=== PATIENT | female | born 1945 | race Caucasian/White ===

== ENCOUNTER 2018-04-12 10:31 | Outpatient (CLI) | payer MEDICARE ==
--- NOTE | 2018-04-12 13:45 | HP ---
DATE OF SERVICE: 04/12/2018. HISTORY OF PRESENT ILLNESS: Ms. Korina Contreras is a very pleasant 73-year-old who presents to the [facility] for evaluation of multiple wounds. Specifically, the patient has an ulceration of the ante rior abdominal wall over the right lower quadrant. The patient also has an ulceration of the right a nterior thigh in addition to an ulceration over the right ischium. 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 Rosenthal at [facility]. 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 The patisukhdev reyna is presently residing at [facility]. The patient was referred to the Wound Center by Dr. Sintia gunn. PAST MEDICAL HISTORY: 1. Chronic back pain. 2. Diabetes mellitus. 3. Hypertension. 4. Osteoporosis/osteopenia. 5. Congestive heart failure. 6. End-stage renal disease. 7. Glaucoma. 8. Osteoarthritis. 9. Gastroesophageal reflux disease. PAST SURGICAL HISTORY: 1. Hysterectomy. 2. Cholecystectomy. 3. Bilateral carpal tunnel release. 4. ORIF left hip/ORIF right proximal humerus. 5. Hardware removal in 12/2010. 6. Eye surgery. MEDICATIONS: 1. DuoNeb. 2. Gemfibrozil. 3. Hydralazine. 4. Hydroxyzine. 5. Lantus. 6. Levothyroxine. 7. Metoclopramide. 8. Sensipar. 9. Sevelamer. 10. Uloric. 11. Vytorin. ALLERGIES: CODEINE, SULFA, EPINEPHRINE. SOCIAL HISTORY: Social history is negative for tobacco or ETOH use. FAMILY HISTORY: Family history is significant for diabetes mellitus. The patient states that her mo ther and two siblings were diagnosed with diabetes mellitus. Family history is also significant for coronary artery disease. The patient states that her mother and father were both diagnosed with marquise nary artery disease. PHYSICAL EXAMINATION: VITAL SIGNS: Temperature 97.5, pulse 75, respirations 18, blood pressure 194/83. Accu-Chek 123. GENERAL: A 73-year-old female sitting on wheelchair in examination room in no acute distress. HEENT: Normocephalic, atraumatic. NECK: No nuchal rigidity. CHEST: Clear to auscultation. CARDIOVASCULAR: Regular rate and rhythm. ABDOMEN: Soft. EXTREMITIES: No clubbing or cyanosis. SKIN: Ulcerations of the anterior abdominal wall over the right lower quadrant, over the right thigh and over the right ischium are present. Each ulceration contains granulation tissue within the woun d margins. No purulent drainage is associated with any of the wounds. No erythema of the skin surro unding any of the wounds is present. No maceration of the skin of the periwound of any of the wounds is noted. ASSESSMENT AND PLAN: 1. Multiple ulcerations as described above. The patient states that biopsy of the wound over the [facility] lower quadrant has been obtained and returned calciphylaxis. She states that she is receiving tr eatment for calciphylaxis at dialysis as per Dr. Rosenthal. Dressing changes of Hydrofera Blue and Mepilex border for all wounds are to be performed at [facility]. I will see Ms. Contreras again in two weeks. If the dimensions of each wound have failed to change significantly, consideration will be gi ro to a trial of a different dressing. The patient understands and is in agreement with the [facility] treatment plan. Ms. Contreras understands and is in agreement with the preceding treatment plan. 2. Chronic back pain. 3. Diabetes mellitus. The patient's Accu-Chek in clinic today is 123. The patient has been told th at for optimal wound healing, her blood glucoses should remain below 150. 4. Hypertension. 5. Osteoporosis/osteopenia. 6. Congestive heart failure. 7. End-stage renal disease. 8. Glaucoma. 9. Osteoarthritis. 10. Gastroesophageal reflux disease.
[2018-04-12] MEDS ORDERED: Sodium Chloride 0.9% 15 ML NEB ONE (21:22)
== END 2018-04-12 10:32 | disposition home or self-care (01) ==
LOC: WCC 10:31
PROVIDERS: ATTEND Family Medicine
DX: E11.622 Type 2 diabetes mellitus with other skin ulcer (principal); L98.499 Non-pressure chronic ulcer of skin of other sites with unspecified severity; L97.119 Non-pressure chronic ulcer of right thigh with unspecified severity; M54.5 Low back pain; G89.29 Other chronic pain; I13.2 Hypertensive heart and chronic kidney disease with heart failure and with stage 5 chronic kidney disease, or end stage renal disease; I50.9 Heart failure, unspecified; N18.6 End stage renal disease; H40.9 Unspecified glaucoma; M19.90 Unspecified osteoarthritis, unspecified site; K21.9 Gastro-esophageal reflux disease without esophagitis
CPT/HCPCS: 97139; 97602; G0463; 99203; A4218

== ENCOUNTER 2018-04-26 10:08 | Outpatient (CLI) | payer MEDICARE ==
[~2018-04-26 10:08] MED LIST: Lidocaine 2% Jelly 5 ML TUBE ONE; Sodium Chloride 0.9% 15 ML NEB ONE
--- NOTE | 2018-04-26 12:28 | PRG ---
DATE OF SERVICE: 04/26/2018 HISTORY: Ms. Korina Contreras is a very pleasant 73-year-old, accompanied by her son, who presents to [facility] for evaluation of multiple wounds. Specifically, the patient has an ulceration of th e right anterior abdominal wall over the right lower quadrant. The patient also has an ulceration of the right anterior thigh in addition to an ulceration over the right ischium. The patient previousl y stated that the ulcerations were secondary to calciphylaxis, for which the patient is receiving albin atment by Dr. Rosenthal at dialysis. The patient reported that her diagnosis of calciphylaxis had been con firmed with biopsy. The patient is now receiving assistance with dressing changes from Home Health. The patient was recently discharged from [facility]. Ms. Contreras was referred to the Wound Ce nter by Dr. Delano Jain. PHYSICAL EXAMINATION: VITAL SIGNS: Temperature 97.7, pulse 81, respirations 18, blood pressure 193/80. Accu-Cheks 116. SKIN: Ulcerations of the anterior abdominal wall, over the right lower quadrant, over the right thig h, and over the right ischium, are still present. Each ulceration contains granulation tissue within the wound margins. No purulent drainage is associated with any of the wounds. No erythema of the s kin surrounding any of the wounds is present. No maceration of the skin of the periwound of any of [facility] wounds is noted. ASSESSMENT AND PLAN: 1. Multiple ulcerations as described above. The patient previously stated that biopsy of the wound, over the right lower quadrant, had been obtained and returned calciphylaxis. The patient also previ ously stated that she is receiving treatment for calciphylaxis at dialysis as per Dr. Rosenthal. Dressings of Hydrofera Blue and Mepilex border will be discontinued. Dressing changes of Medihoney will be in itiated today. These dressing changes are to be performed on a daily basis after cleansing and irrig ation with the assistance of Home Health. I will see Ms. Contreras again in 2 weeks. 2. Chronic back pain. 3. Diabetes mellitus. The patient's Accu-Chek in clinic today is 116. The patient has been reminde d that for optimal wound healing, her blood glucoses should remain below 150. 4. Hypertension. 5. Osteoporosis/osteopenia. 6. Congestive heart failure. 7. End-stage renal disease. 8. Glaucoma. 9. Osteoarthritis. 10. Gastroesophageal reflux disease.
== END 2018-04-26 10:09 | disposition home or self-care (01) ==
LOC: WCC 10:08
PROVIDERS: ATTEND Family Medicine
DX: E11.622 Type 2 diabetes mellitus with other skin ulcer (principal); L97.119 Non-pressure chronic ulcer of right thigh with unspecified severity; L98.499 Non-pressure chronic ulcer of skin of other sites with unspecified severity; E11.22 Type 2 diabetes mellitus with diabetic chronic kidney disease; I12.0 Hypertensive chronic kidney disease with stage 5 chronic kidney disease or end stage renal disease; N18.6 End stage renal disease; H40.9 Unspecified glaucoma; K21.9 Gastro-esophageal reflux disease without esophagitis; E83.59 Other disorders of calcium metabolism
CPT/HCPCS: 97602; A4218

== ENCOUNTER 2018-05-10 10:45 | Outpatient (CLI) | payer MEDICARE ==
--- NOTE | 2018-05-10 11:51 | PRG ---
DATE OF SERVICE: 05/10/2018 HISTORY: Ms. Korina Contreras is a very pleasant 73-year-old accompanied by her son who presents to the Wound Center for evaluation of multiple wounds. Specifically, the patient has an ulceration of t he right anterior abdominal wall over the right lower quadrant. The patient also has an ulceration o f the right anterior thigh in addition to an ulceration over the right ischium. The patient previous ly stated that the ulcerations were secondary to calciphylaxis for which the patient is receiving albin atment by Dr. Rosenthal at dialysis. The patient reported that her diagnosis of calciphylaxis had been con firmed biopsy. Currently, the patient is receiving assistance with dressing changes from home health . The patient's son states that these dressing changes are being performed on a daily basis after cl eansing and irrigation. Ms. Contreras was recently discharged from [facility]. The patient was referred to the Wound Center by Dr. Delano Jain. PHYSICAL EXAMINATION: VITAL SIGNS: Temperature 98.0, pulse 72, respirations 18, blood pressure 192/76, Accu-Chek 162. SKIN: An ulceration over the anterior abdominal wall over the right lower quadrant is present. The dimensions of the wound are approximately 1.4 x 0.3 cm. An ulceration over the right thigh is presen t which measures approximately 1.0 x 0.3 cm. An ulceration over the right ischium is present which m easures approximately 3.3 x 1.5 cm. A new ulceration over the left buttock is present which measures approximately 1.2 x 0.8 cm. Each ulceration contains granulation tissue within the wound margins. No purulent drainage is associated with any of the wounds. No erythema of the skin surrounding any o f the wounds is present. No maceration of the skin of the periwound of any of the wounds is noted. The ulcerations of the abdomen, right thigh and right ischium have all significantly improved in thei r appearance since the patient's last visit. ASSESSMENT AND PLAN: 1. Multiple ulcerations as described above. The patient previously stated that biopsy of the wound over the right lower quadrant had been obtained and returned with findings of calciphylaxis. The pat ient also previously stated that she is receiving treatment for calciphylaxis at dialysis as per Dr. Rosenthal. Dressing changes of Medihoney will be continued on a daily basis after cleansing and irrigation with the assistance of Home Health. I will see Ms. Contreras again in two weeks. As stated above, th e ulcerations noted at the time of the patient's last visit have markedly improved in their appearanc e since the patient's last visit. The new ulceration over the left buttock appears to be a pressure ulceration and the patient has been instructed as to the importance of offloading with position august es at least every 2 hours. 2. Chronic back pain. 3. Diabetes mellitus. The patient's Accu-Chek in clinic today is 162. The patient has been reminde d that for optimal wound healing, her blood glucoses should remain below 150. 4. Hypertension. 5. Osteoporosis/osteopenia. 6. Congestive heart failure. 7. End-stage renal disease. 8. Glaucoma. 9. Osteoarthritis. 10. Gastroesophageal reflux disease.
[2018-05-10] MEDS ORDERED: Sodium Chloride 0.9% 15 ML NEB ONE (19:02)
[2018-05-10] MEDS ORDERED: Lidocaine 2% Jelly 5 ML TUBE ONE (19:02)
== END 2018-05-10 10:46 | disposition home or self-care (01) ==
LOC: WCC 10:45
PROVIDERS: ATTEND Family Medicine
DX: E11.622 Type 2 diabetes mellitus with other skin ulcer (principal); L98.499 Non-pressure chronic ulcer of skin of other sites with unspecified severity; G89.29 Other chronic pain; M54.9 Dorsalgia, unspecified; E11.22 Type 2 diabetes mellitus with diabetic chronic kidney disease; I13.2 Hypertensive heart and chronic kidney disease with heart failure and with stage 5 chronic kidney disease, or end stage renal disease; N18.6 End stage renal disease; I50.9 Heart failure, unspecified; M81.0 Age-related osteoporosis without current pathological fracture; K21.9 Gastro-esophageal reflux disease without esophagitis; E11.39 Type 2 diabetes mellitus with other diabetic ophthalmic complication; M19.90 Unspecified osteoarthritis, unspecified site; H40.9 Unspecified glaucoma
CPT/HCPCS: A4218

== ENCOUNTER 2018-05-24 14:58 | Outpatient (CLI) | payer MEDICARE ==
[~2018-05-24 14:58] MED LIST changes: -Lidocaine 2% Jelly 5 ML TUBE ONE
--- NOTE | 2018-05-24 16:10 | PRG ---
DATE OF SERVICE: 05/24/2018 HISTORY: Ms. Korina Contreras is a very pleasant 73-year-old accompanied by her son who presents to the Wound Center for evaluation of multiple wounds. Specifically, the patient has an ulceration of t he right anterior abdominal wall over the right lower quadrant. The patient also has an ulceration o f the right anterior thigh in addition to an ulceration over the right ischium. The patient previous ly stated that the ulcerations were secondary to calciphylaxis for which the patient is receiving albin atment by Dr. Rosenthal at dialysis. The patient reported that her diagnosis of calciphylaxis had been con firmed by biopsy. Currently, the patient is receiving assistance with dressing changes by [facility]. The patient's son again states that these dressing changes are being performed on a daily basis a fter cleansing and irrigation. The patient was recently discharged from [facility]. Ms. Odell rodriguez was referred to the Wound Center by Dr. Delano Jain. PHYSICAL EXAMINATION: VITAL SIGNS: Temperature 97.9, respirations 17. Accu-Chek 143. SKIN: An ulceration over the anterior abdominal wall over the right lower quadrant has almost healed completely. The ulceration over the right thigh has completely healed. An ulceration over the righ t ischium is present which measures approximately 2.0 x 2.0 cm. An ulceration over the left buttock is present which measures approximately 0.4 x 0.4 cm. The patient reports presence of an ulceration of the right anterior lower leg which appears to be healing without complications or any signs of inf ection. No purulent drainage is associated with any of the wounds. No erythema of the skin surround ing any of the wounds is present. No maceration of the skin of the periwound of any of the wounds is noted. ASSESSMENT AND PLAN: 1. Multiple ulcerations as described above. The patient previously stated that biopsy of the wound over the right lower quadrant had been obtained and returned with findings of calciphylaxis. The pat ient also previously stated that she is receiving treatment for calciphylaxis at dialysis as per Dr. Rosenthal. Dressing changes of Medihoney will be continued on a daily basis after cleansing and irrigation for all wounds with the assistance of Home Health. I will see Ms. Contreras again in two weeks. The remaining ulcerations again have significantly improved in their appearance since the patient's last visit. Again, the patient has been told that the ulceration over the left buttock appears to be a pr essure ulceration and the patient has been instructed as to the importance of offloading with positio n changes at least every 2 hours. 2. Chronic back pain. 3. Diabetes mellitus. The patient's Accu-Chek in clinic today is 143. The patient has been reminde d that for optimal wound healing, her blood glucoses should remain below 150. 4. Hypertension. 5. Osteoporosis/osteopenia. 6. Congestive heart failure. 7. End-stage renal disease. 8. Glaucoma. 9. Osteoarthritis. 10. Gastroesophageal reflux disease.
== END 2018-05-24 14:59 | disposition home or self-care (01) ==
LOC: WCC 14:58
PROVIDERS: ATTEND Family Medicine
DX: L89.329 Pressure ulcer of left buttock, unspecified stage (principal); K25.9 Gastric ulcer, unspecified as acute or chronic, without hemorrhage or perforation; M54.5 Low back pain; E11.22 Type 2 diabetes mellitus with diabetic chronic kidney disease; I13.2 Hypertensive heart and chronic kidney disease with heart failure and with stage 5 chronic kidney disease, or end stage renal disease; I50.9 Heart failure, unspecified; M81.0 Age-related osteoporosis without current pathological fracture; M85.80 Other specified disorders of bone density and structure, unspecified site; H40.9 Unspecified glaucoma; M19.90 Unspecified osteoarthritis, unspecified site; K21.9 Gastro-esophageal reflux disease without esophagitis; N18.6 End stage renal disease
CPT/HCPCS: 97602; A4218

== ENCOUNTER → 2018-06-07 | Outpatient (CLI) | payer MEDICARE ==
[~2018-06-07] MED LIST changes: +Lidocaine 2% Jelly 5 ML TUBE ONE
--- NOTE | 2018-06-07 11:40 | PRG ---
DATE OF SERVICE: 06/07/2018 HISTORY: Ms. Korina Contreras is a very pleasant 73-year-old accompanied by her son who presents to the Wound Center for evaluation of multiple wounds. Specifically, the patient has an ulceration of t he right anterior abdominal wall over the right lower quadrant. The patient also has an ulceration o f the right anterior thigh in addition to an ulceration over the right ischium. The patient previous ly stated that the ulcerations were secondary to calciphylaxis for which the patient is receiving albin atment by Dr. Rosenthal at dialysis. The patient reported that her diagnosis of calciphylaxis had been con firmed by biopsy. Presently, the patient is receiving assistance with dressing changes by [facility]. The patient's son again states that these dressing changes are being performed on a daily basis a fter cleansing and irrigation. PHYSICAL EXAMINATION: VITAL SIGNS: Temperature 97.6, pulse 73, respirations 18, blood pressure 196/76, Accu-Chek 128. SKIN: The ulceration over the anterior abdominal wall over the right lower quadrant has almost heale d completely. The ulceration over the right thigh has healed completely and remains healed. An ulce ration over the right ischium is present which measures approximately 1.2 x 1.1 cm. The ulceration o vincent the left buttock noted at the time of the patient's last visit has healed completely. An ulcerat ion over the right anterior lower leg is present which again appears to be healing without complicati ons or any signs of infection. No purulent drainage is associated with any of the wounds. No erythe ma of the skin surrounding any of the wounds is present. No maceration of the skin of the periwound of any of the wounds is noted. ASSESSMENT AND PLAN: 1. Multiple ulcerations as described above. The patient previously stated that the biopsy of the wo und over the right lower quadrant had been obtained and returned with findings of calciphylaxis. The patient also previously stated that she is receiving treatment for calciphylaxis at dialysis as per Dr. Rosenthal. Dressing changes of [facility] for all remaining wounds will be continued on a daily basis a fter cleansing and irrigation with the assistance of Home Health. I will see Ms. Contreras again in tw o weeks. 2. Chronic back pain. 3. Diabetes mellitus. The patient's Accu-Chek in clinic today is 128. The patient has been reminde d that for optimal wound healing, her blood glucoses should remain below 150. 4. Hypertension. 5. Osteoporosis/osteopenia. 6. Congestive heart failure. 7. End-stage renal disease. 8. Glaucoma. 9. Osteoarthritis. 10. Gastroesophageal reflux disease.
== END ==
LOC: WCC 12:52
PROVIDERS: ATTEND Family Medicine
DX: E11.622 Type 2 diabetes mellitus with other skin ulcer (principal); L98.499 Non-pressure chronic ulcer of skin of other sites with unspecified severity; E11.22 Type 2 diabetes mellitus with diabetic chronic kidney disease; I13.0 Hypertensive heart and chronic kidney disease with heart failure and stage 1 through stage 4 chronic kidney disease, or unspecified chronic kidney disease; I50.9 Heart failure, unspecified; N18.6 End stage renal disease; M54.9 Dorsalgia, unspecified; G89.29 Other chronic pain; M81.0 Age-related osteoporosis without current pathological fracture; M19.90 Unspecified osteoarthritis, unspecified site; H40.9 Unspecified glaucoma; K21.9 Gastro-esophageal reflux disease without esophagitis
CPT/HCPCS: 97602; A4218

== ENCOUNTER 2018-06-20 15:07 | Outpatient (CLI) | payer MEDICARE ==
--- NOTE | 2018-06-20 17:26 | PRG ---
DATE OF SERVICE: 06/20/2018 HISTORY: Ms. Korina Contreras is a very pleasant 73-year-old accompanied by her son who presents to the Wound Center for evaluation of multiple wounds. Specifically, the patient has an ulceration of t he right anterior abdominal wall over the right lower quadrant. The patient also has an ulceration o f the right ischium in addition to an ulceration of the right anterior lower leg. The patient previo usly stated that the ulcerations were secondary to calciphylaxis for which the patient is receiving t reatment by Dr. Rosenthal at dialysis. The patient reported that her diagnosis of calciphylaxis had been c onfirmed by biopsy. Currently, the patient is receiving assistance with dressing changes by [facility]. The patient's son again states that these dressing changes are being performed on a daily basis after cleansing and irrigation. PHYSICAL EXAMINATION: VITAL SIGNS: Temperature 98.1, pulse 73, respirations 21, blood pressure 150/65. Accu-Chek 131. SKIN: The ulceration over the anterior abdominal wall over the right lower quadrant has healed compl etely. The ulceration over the right ischium measures approximately 1.0 x 0.9 cm. The ulceration ov er the right anterior lower leg has almost healed completely. No purulent drainage is associated wit h any of the wounds. No erythema of the skin surrounding any of the wounds is present. No maceratio n of the skin of the periwound of any of the wounds is noted. ASSESSMENT AND PLAN: 1. Multiple ulcerations as described above. The patient previously stated that biopsy of the wound over the right lower quadrant had been obtained and returned with findings of calciphylaxis. The pat ient also previously stated that she is receiving treatment for calciphylaxis at dialysis as per Dr. Rosenthal. Dressing changes of [facility] for the right ischial wound and for the wound over the right ante rior lower leg will be continued on a daily basis after cleansing and irrigation with the assistance of Home Health. I will see Mr. Contreras again in 4 weeks. 2. Chronic back pain. 3. Diabetes mellitus. The patient's Accu-Chek in clinic today is 131. The patient has been reminde d that for optimal wound healing, her blood glucoses should remain below 150. 4. Hypertension. 5. Osteoporosis/osteopenia. 6. Congestive heart failure. 7. End-stage renal disease. 8. Glaucoma. 9. Osteoarthritis. 10. Gastroesophageal reflux disease.
== END 2018-06-20 15:08 | disposition home or self-care (01) ==
LOC: WCC 15:07
PROVIDERS: ATTEND Family Medicine
DX: E11.622 Type 2 diabetes mellitus with other skin ulcer (principal); L98.419 Non-pressure chronic ulcer of buttock with unspecified severity; M54.9 Dorsalgia, unspecified; G89.29 Other chronic pain; I13.2 Hypertensive heart and chronic kidney disease with heart failure and with stage 5 chronic kidney disease, or end stage renal disease; I50.9 Heart failure, unspecified; N18.6 End stage renal disease; H40.9 Unspecified glaucoma; M19.90 Unspecified osteoarthritis, unspecified site; K21.9 Gastro-esophageal reflux disease without esophagitis
CPT/HCPCS: 36416; 97602

== ENCOUNTER 2018-07-26 10:32 | Outpatient (CLI) | payer MEDICARE ==
--- NOTE | 2018-07-26 12:02 | PRG ---
DATE OF SERVICE: 07/26/2018 HISTORY: Ms. Korina Contrersa is a very pleasant 73-year-old accompanied by her ovsmrs-[id number]-fhd who pr esents to the Wound Center for evaluation of multiple wounds. Specifically, the patient has an ulcer ation of the right anterior abdominal wall over the right lower quadrant. The patient also has an ul ceration of the right ischium in addition to an ulceration of the right anterior lower leg. The veronika ent previously stated that the ulcerations were secondary to calciphylaxis for which the patient is r eceiving treatment by Dr. Rosenthal at dialysis. The patient reported that her diagnosis of calciphylaxis had been confirmed by biopsy. The patient continues to receive assistance with dressing changes by [facility]. The patient is, however, no longer receiving dressing changes on a daily basis. PHYSICAL EXAMINATION: VITAL SIGNS: Temperature 97.6, pulse 71, respirations 21, blood pressure 157/63, Accu-Chek 116. SKIN: The ulceration over the anterior abdominal wall over the right lower quadrant has healed compl etely and remains healed. The ulceration over the right ischium has healed completely. The ulcerati on over the right anterior lower leg has also healed completely. Dorsalis pedis pulse or posterior t ibial pulse is not palpable on the right. Both pulses are, however weakly audible by Doppler. No op en wounds are present over the right foot. ASSESSMENT AND PLAN: 1. Multiple ulcerations as described above. As stated above, all of the wounds have completely heal ed. The patient previously stated that biopsy of the wound over the right lower quadrant had been ob tained and returned with findings of calciphylaxis. The patient also previously stated that she is r eceiving treatment for calciphylaxis at dialysis as per Dr. Rosenthal. Dressing changes of Mepilex border for the newly healed right ischial wound will be continued with the assistance of [facility]. Order s will be transmitted to Home Health for Salbador bandages to the right and left feet and lower legs as ne eded for edema management. Ms. Contreras will be discharged from clinic today with followup on a p.r.n . basis. 2. Chronic back pain. 3. Diabetes mellitus. The patient's Accu-Chek in clinic today is 116. 4. Hypertension. The patient's blood pressure in clinic today is 157/63. The patient has been told that in view of her diabetes, her blood pressures should be maintained at less than 140/90 and more optimally less than 130/80. Patient states that her primary care physician is now Dr. Waller. 5. Osteoporosis/osteopenia. 6. Congestive heart failure. 7. End-stage renal disease. 8. Glaucoma. 9. Osteoarthritis. 10. Gastroesophageal reflux disease.
== END 2018-07-26 10:33 | disposition home or self-care (01) ==
LOC: WCC 10:32
PROVIDERS: ATTEND Family Medicine
DX: E11.621 Type 2 diabetes mellitus with foot ulcer (principal); L97.819 Non-pressure chronic ulcer of other part of right lower leg with unspecified severity; E11.622 Type 2 diabetes mellitus with other skin ulcer; L98.499 Non-pressure chronic ulcer of skin of other sites with unspecified severity; M54.9 Dorsalgia, unspecified; G89.29 Other chronic pain; I50.9 Heart failure, unspecified; I12.0 Hypertensive chronic kidney disease with stage 5 chronic kidney disease or end stage renal disease; E11.22 Type 2 diabetes mellitus with diabetic chronic kidney disease; N18.6 End stage renal disease; M19.90 Unspecified osteoarthritis, unspecified site; K21.9 Gastro-esophageal reflux disease without esophagitis; E11.39 Type 2 diabetes mellitus with other diabetic ophthalmic complication; H42 Glaucoma in diseases classified elsewhere
CPT/HCPCS: 36416

== ENCOUNTER 2018-08-30 11:05 | Outpatient (CLI) | payer MEDICARE ==
--- NOTE | 2018-08-30 11:52 | PRG ---
DATE OF SERVICE: 08/30/2018 HISTORY: Ms. Korina Contreras is a very pleasant 73-year-old accompanied by her [id number] who pr esents to the Wound Center for evaluation of an ulceration of the right lower leg. The patient state s that she developed a blister over the right lower leg which subsequently opened resulting in the wo und of the right lower leg now present. The patient states she is still receiving assistance with dr bette simons by [facility]. The patient has no other complaints today. She denies any fever or c hills. The patient was last seen in the Wound Center on 07/26/2018 for ulceration secondary to calci phylaxis. PHYSICAL EXAMINATION: VITAL SIGNS: Temperature 97.5, pulse 73, respirations 19, blood pressure 159/67. Accu-Chek 115. EXTREMITIES: Ulceration over the right lower leg is present which measures approximately 3.1 x 3.5 c m. No purulent drainage is associated with the wound. Serous drainage is associated with the wound on today's exam. No cellulitis of the right lower leg is appreciated. No maceration of the skin of the periwound is noted. A dorsalis pedis pulse or posterior tibial pulse is not palpable on today's exam. Mild to moderate edema of the right foot and lower leg is present. ASSESSMENT AND PLAN: 1. Chronic venous hypertension with ulceration. Dressing changes of Xeroform gauze, Webril, and an Salbador bandage will be initiated today. These dressing changes are to be performed 3 times per week aft er cleansing and irrigation with the assistance of Home Health. Orders will be transmitted to [facility] for the preceding dressing changes to be performed until the wound has healed completely. The patient understands and is in agreement with the preceding treatment plan. Ms. Contreras will be disch arged from clinic today with followup on a p.r.n. basis. 2. Chronic back pain. 3. Diabetes mellitus. The patient's Accu-Chek in clinic today is 115. The patient has been reminde d that for optimal wound healing, the patient's blood glucoses should remain below 150. 4. Hypertension. 5. Osteoporosis/osteopenia. 6. Congestive heart failure. 7. End-stage renal disease. 8. Glaucoma. 9. Osteoarthritis. 10. Gastroesophageal reflux disease.
== END 2018-08-30 11:06 | disposition home or self-care (01) ==
LOC: WCC 11:05
PROVIDERS: ATTEND Family Medicine
DX: I87.311 Chronic venous hypertension (idiopathic) with ulcer of right lower extremity (principal); E11.622 Type 2 diabetes mellitus with other skin ulcer; L97.919 Non-pressure chronic ulcer of unspecified part of right lower leg with unspecified severity; I13.2 Hypertensive heart and chronic kidney disease with heart failure and with stage 5 chronic kidney disease, or end stage renal disease; I50.9 Heart failure, unspecified; N18.6 End stage renal disease; K21.9 Gastro-esophageal reflux disease without esophagitis; H40.9 Unspecified glaucoma; M54.9 Dorsalgia, unspecified; G89.29 Other chronic pain
CPT/HCPCS: 36416

== ENCOUNTER 2019-08-01 14:28 | Outpatient (CLI) | payer MEDICARE ==
[~2019-08-01 14:28] MED LIST changes: -Lidocaine 2% Jelly 5 ML TUBE ONE
--- NOTE | 2019-08-01 16:24 | PRG ---
DATE OF SERVICE: 08/01/2019 HISTORY: Ms. Korina Contreras is a very pleasant 74-year-old accompanied by her [id number], who [facility] for evaluation of an ulceration of the left anterior lower leg. The patient was last seen in the [facility] on 08/30/2018 for an ulceration over the right lower leg. Today, the patient states that the ulceration of her left lower leg was preceded by edema and the formation of a blister. The patient states that for her wound she has been performing dressing changes of mupirocin followed by Telfa. The patient has no other complaints today. She denies any fever or chills. She states that she is now receiving hemodialysis as opposed to peritoneal dialysis. PHYSICAL EXAMINATION: VITAL SIGNS: Temperature 98.2, pulse 61, respirations 18, and blood pressure 164/70. Accu-Chek 138. EXTREMITIES: The ulceration over the left anterior lower leg has almost healed completely. Only dry eschar is associated with one portion of the periphery of the wound. No serous or purulent drainage is associated with the wound. No erythema of the skin surrounding the wound is present. No maceration of the skin of the periwound is noted. A dorsalis pedis pulse is palpable on the left. Edema of the left foot and lower leg is present on exam today. ASSESSMENT AND PLAN: 1. Chronic venous hypertension with ulceration. As stated above, the wound has almost healed completely. Eschar is associated with a small portion of the periphery of the wound. The patient states that she does not utilize her compression garments because of difficulty in applying the garments. The patient states that she manages the edema of her lower extremities with the application of wraps utilizing Coban. For the ulceration of the left anterior lower leg, the patient is to perform dressing changes of Medihoney followed by Telfa and Coban on a daily basis after cleansing and irrigation until the wound has healed completely. The patient has been reassured that the wound has almost completely healed, and Ms. Contreras will be discharged from clinic today with followup on a p.r.n. basis. The patient and her [id number] understand and are in agreement with the preceding treatment plan. 2. Chronic back pain. 3. Diabetes mellitus. The patient's Accu-Chek in clinic today is 138. The patient has been reminded that for optimal wound healing, her blood glucoses should remain below 150. 4. Hypertension. 5. Osteoporosis/osteopenia. 6. Congestive heart failure. 7. End-stage renal disease. 8. Glaucoma. 9. Osteoarthritis. 10. Gastroesophageal reflux disease. Job ID: [id number]
== END 2019-08-01 14:29 | disposition home or self-care (01) ==
LOC: WCC 14:28
PROVIDERS: ATTEND Family Medicine
DX: I87.302 Chronic venous hypertension (idiopathic) without complications of left lower extremity (principal); I13.2 Hypertensive heart and chronic kidney disease with heart failure and with stage 5 chronic kidney disease, or end stage renal disease; E11.22 Type 2 diabetes mellitus with diabetic chronic kidney disease; N18.6 End stage renal disease; I50.9 Heart failure, unspecified; M54.9 Dorsalgia, unspecified; G89.29 Other chronic pain; M81.0 Age-related osteoporosis without current pathological fracture; M85.80 Other specified disorders of bone density and structure, unspecified site; H40.9 Unspecified glaucoma; M19.90 Unspecified osteoarthritis, unspecified site; K21.9 Gastro-esophageal reflux disease without esophagitis
CPT/HCPCS: 36416; A4218